=== PATIENT | male | born 1985 | race Hispanic/Latino ===

== ENCOUNTER 2018-02-19 16:04 | Outpatient (RCR) | payer OTHER | END 2018-02-21 | LOC: PT 16:04 | PROVIDERS: ATTEND Specialist | DX: S33.5XXA Sprain of ligaments of lumbar spine, initial encounter (principal); M51.16 Intervertebral disc disorders with radiculopathy, lumbar region; M54.5 Low back pain; M62.81 Muscle weakness (generalized); R26.81 Unsteadiness on feet ==

== ENCOUNTER 2018-03-12 16:00 | Outpatient (RCR) | payer OTHER | END 2018-03-24 | LOC: PT 16:00 | PROVIDERS: ATTEND Specialist | DX: S33.5XXA Sprain of ligaments of lumbar spine, initial encounter (principal); M54.5 Low back pain; M51.16 Intervertebral disc disorders with radiculopathy, lumbar region; M62.81 Muscle weakness (generalized); R26.89 Other abnormalities of gait and mobility ==

== ENCOUNTER → 2022-05-01 | Outpatient (CLI) | payer BC | LOC: SLEEP 19:21 | PROVIDERS: ATTEND Nurse Practitioner | DX: G47.33 Obstructive sleep apnea (adult) (pediatric) (principal) | CPT/HCPCS: 95810 ==